=== PATIENT | male | born 1975 | race Two or more races ===

== ENCOUNTER 2023-04-24 00:52 | Emergency (ER) | payer MEDICAID, OTHER ==
[~2023-04-24] VITALS: Ht 175.3 cm; Wt 95.4 kg
[2023-04-24] MEDS ORDERED: MORPHINE SULFATE 4 MG/ML SYR/VIAL IM ONE (01:15)
[2023-04-24 01:18] LABS: Urine Bacteria NONE SEEN /hpf (None Seen); Urine Blood Negative /uL (Negative); Urine Clarity Clear (Clear); Urine Color Yellow (Yellow); Urine Hyaline Cast FEW /lpf (0 - 2); Urine Protein, UAD TRACE (Negative); Urine Specific Gravity 1.024 (1.001-1.035); Urine WBC 1 /hpf (0 - 3)
[2023-04-24 01:55] VITALS: BP 143/79; PULSE 64; RESP 20; TEMP 98.9; O2SAT 97
[2023-04-24] MEDS ORDERED: LIDOCAINE VISCOUS 2% 15ML UD PO ONE (02:00)
[2023-04-24] MEDS ORDERED: MAALOX PLUS or MAALOX 30 ML PO ONE (02:00)
[2023-04-24] MEDS ORDERED: DONNATAL 5ml ORAL Elix (BELLADONNA ALK-PHENOBARB) PO ONE (02:00)
[2023-04-24 02:07] LABS: Basophils # (auto) 0.1 10 ^3/uL (0-0.2); Basophils % (auto) 0.7 % (0.0-2.0); Eosinophils # (auto) 0.1 10 ^3/uL (0-0.8); Eosinophils % (auto) 1.3 % (0.0-7.0); Hematocrit 47.3 % (41.0-53.0); Hemoglobin 16.4 g/dL (13.5-17.5); Lymphocytes # (auto) 1.2 10 ^3/uL (0.4-5.4); Lymphocytes % (auto) 13.6 % (10.0-50.0); Mean Corpuscular Hemoglobin 30.9 pg (28.0-32.0); Mean Corpuscular Hgb Conc. 34.6 g/dL (32.0-36.0); Mean Corpuscular Volume 89.3 fL (80.0-100.0); Monocytes # (auto) 0.5 10 ^3/uL (0-1.3); Neutrophils # (auto) 6.9 10 ^3/uL (1.6-8.6); Neutrophils % (auto) 78.4 % (37.0-80.0); Nucleated Red Blood Cells % 0.1 %; Red Cell Distribution Width 13.9 % (11.8-14.3); White Blood Cell 8.8 10^3/uL (4.4-10.8)
[2023-04-24 02:27] LABS: Alanine Aminotransferase 151 U/L (7-40); Alkaline Phosphatase 89 U/L (46-116); Anion Gap 8 (5-15); Aspartate Aminotransferase 198 U/L (13-40); BUN/Creatinine Ratio 21.6 (10.0-20.0); Blood Urea Nitrogen 24 mg/dL (9-23); Calcium 9.4 mg/dL (8.7-10.4); Carbon Dioxide 24 mmol/L (20-30); Chloride 106 mmol/L (98-107); Glucose 173 mg/dL (74-106); Lipase 61 U/L (12-53); Potassium 3.8 mmol/L (3.5-5.1); Sodium 138 mmol/L (136-145)
[2023-04-24 02:28] LABS: Albumin 4.5 g/dL (3.2-4.8); Bilirubin, Total 1.7 mg/dL (0.2-1.0); Total Protein 7.1 g/dL (5.7-8.2)
[2023-04-24] MEDS ORDERED: DICY10CA PO (03:00)
== END 2023-04-24 03:33 | disposition home or self-care (01) ==
LOC: ER 00:55
DX: K52.9 Noninfective gastroenteritis and colitis, unspecified (principal); Z98.890 Other specified postprocedural states
CPT/HCPCS: 36415; 74176; 80053; 81001; 83690; 85025; 96372; 99285; J2270

== ENCOUNTER 2023-06-02 11:03 | Inpatient (IN) | payer MEDICAID ==
[~2023-06-02] VITALS: Ht 180.3 cm; Wt 95.0 kg
[~2023-06-02 11:03] MED LIST: DICY10CA PO
[2023-06-02] MEDS ORDERED: SODIUM CHLORIDE 0.9% 1,000 ML IVB ONE (11:15)
[2023-06-02] MEDS ORDERED: KETOROLAC TROMETH 30 MG/ML 1ML VIAL IV ONE (11:15)
[2023-06-02] MEDS ORDERED: ONDANSETRON HCL 4 MG/2 ML VIAL IV ONE (11:15)
[2023-06-02 11:41] LABS: Basophils # (auto) 0.1 10 ^3/uL (0-0.2); Basophils % (auto) 0.4 % (0.0-2.0); Eosinophils # (auto) 0 10 ^3/uL (0-0.8); Eosinophils % (auto) 0.2 % (0.0-7.0); Lymphocytes # (auto) 2.1 10 ^3/uL (0.4-5.4); Lymphocytes % (auto) 13.1 % (10.0-50.0); Mean Corpuscular Hemoglobin 30.3 pg (28.0-32.0); Mean Corpuscular Hgb Conc. 33.4 g/dL (32.0-36.0); Mean Corpuscular Volume 90.7 fL (80.0-100.0); Monocytes # (auto) 1.1 10 ^3/uL (0-1.3); Neutrophils # (auto) 12.7 10 ^3/uL (1.6-8.6); Neutrophils % (auto) 79.3 % (37.0-80.0); Nucleated Red Blood Cells % 0.1 %; Red Blood Cells 6.28 10^6/uL (4.5-5.90); Red Cell Distribution Width 13.9 % (11.8-14.3)
[2023-06-02 12:07] LABS: Alanine Aminotransferase 476 U/L (7-40); Albumin 5.1 g/dL (3.2-4.8); Alkaline Phosphatase 110 U/L (46-116); Anion Gap 11 (5-15); Aspartate Aminotransferase 493 U/L (13-40); BUN/Creatinine Ratio 8.4 (10.0-20.0); Bilirubin, Total 2.2 mg/dL (0.2-1.0); Blood Urea Nitrogen 10 mg/dL (9-23); Calcium 10.1 mg/dL (8.5-10.1); Carbon Dioxide 27 mmol/L (20-30); Chloride 101 mmol/L (98-107); Glucose 182 mg/dL (74-106); Potassium 4.1 mmol/L (3.5-5.1); Sodium 139 mmol/L (136-145); Total Protein 8.4 g/dL (5.7-8.2)
[2023-06-02] MEDS ORDERED: PROCHLORPERAZINE EDISYLATE 5 MG/ML 2ML VIAL IV ONE (12:45)
[2023-06-02 12:55] LABS: Magnesium 1.8 mg/dL (1.6-2.6)
[2023-06-02 14:08] LABS: Lipase > 3500 U/L (12-53)
[2023-06-02] MEDS ORDERED: IOHEXOL 300 MG/ML 100ML BOTTLE IJ ONE (14:27)
[2023-06-02] MEDS ORDERED: metroNIDAZOLE 500MG/100ML 100 ML IV ONE (15:45)
[2023-06-02] MEDS ORDERED: SODIUM CHLORIDE 0.9% 2,000 ML IV ONE (15:45)
[2023-06-02] MEDS ORDERED: cefTRIAXone 1GM/50ML D5W 50 ML IV ONE (15:45)
[2023-06-02] MEDS ORDERED: PANT40T PO (15:53)
[2023-06-02] MEDS ORDERED: FAMO20TA10 PO (15:53)
[2023-06-02] MEDS ORDERED: PANTOPRAZOLE 40 MG/10 ML VIAL INJ IV ONE (16:00)
[2023-06-02] MEDS ORDERED: ACETAMINOPHEN 325 MG TAB PO PRN (16:00)
[2023-06-02] MEDS: SODIUM CHLORIDE 0.9% 1,000 ML IV SCH (16:24)
[2023-06-02] MEDS: MORPHINE SULFATE INJ 2 MG/ml SYRG IV PRN ×2 (18:24→22:57)
[2023-06-02] MEDS: metroNIDAZOLE 500MG/100ML 100 ML IV SCH (21:58)
[2023-06-02] MEDS: KETOROLAC TROMETH 30 MG/ML 1ML VIAL IV PRN (21:59)
[2023-06-02 22:29] VITALS: BP 148/95; PULSE 82; RESP 22; TEMP 97.9; O2SAT 97; O2SAT 99
[2023-06-02] MEDS: ONDANSETRON HCL 4 MG/2 ML VIAL IV PRN (22:57)
[2023-06-02 23:54] LABS: Urine Bacteria NONE SEEN /hpf (None Seen); Urine Blood Negative /uL (Negative); Urine Clarity Clear (Clear); Urine Color Yellow (Yellow); Urine Mucus FEW (None Seen); Urine Protein, UAD 1+ (Negative); Urine Specific Gravity 1.046 (1.001-1.035); Urine Urobilinogen Normal (Negative); Urine WBC 2 /hpf (0 - 3); Urine pH 5.5 (5.0-8.0)
[2023-06-03 00:02] LABS: Amphetamine Screen, Urine Neg (NEGATIVE); Barbiturate Scree,Urine Neg (NEGATIVE); Benzodiazephine Screen, Urine Neg (NEGATIVE)
[2023-06-03 00:03] LABS: Cannabinoid Screen, Urine Neg (NEGATIVE); Cocaine Screen, Urine Neg (NEGATIVE); Opiate Scree,Urine Pos (NEGATIVE); Phencyclidine Screen, Urine Neg (NEGATIVE)
[2023-06-03] MEDS: SODIUM CHLORIDE 0.9% 1,000 ML IV SCH ×4 (00:20→21:02)
[2023-06-03] MEDS: ONDANSETRON HCL 4 MG/2 ML VIAL IV PRN ×2 (01:58→06:07)
[2023-06-03] MEDS: MORPHINE SULFATE INJ 2 MG/ml SYRG IV PRN ×4 (01:59→21:18)
[2023-06-03] MEDS: KETOROLAC TROMETH 30 MG/ML 1ML VIAL IV PRN (04:28)
[2023-06-03 05:00] VITALS: BP 137/94; PULSE 87; RESP 22; TEMP 98; O2SAT 93
[2023-06-03] MEDS: metroNIDAZOLE 500MG/100ML 100 ML IV SCH ×3 (06:07→21:02)
[2023-06-03 07:32] LABS: Basophils # (auto) 0 10 ^3/uL (0-0.2); Basophils % (auto) 0.1 % (0.0-2.0); Eosinophils # (auto) 0 10 ^3/uL (0-0.8); Hematocrit 53.4 % (41.0-53.0); Lymphocytes # (auto) 0.7 10 ^3/uL (0.4-5.4); Lymphocytes % (auto) 3.1 % (10.0-50.0); Monocytes # (auto) 1.3 10 ^3/uL (0-1.3); Nucleated Red Blood Cells % 0.1 %; Red Cell Distribution Width 13.7 % (11.8-14.3)
[2023-06-03 07:37] LABS: Eosinophils % (auto) 0.1 % (0.0-7.0); Hemoglobin 17.8 g/dL (13.5-17.5); Mean Corpuscular Hemoglobin 30.3 pg (28.0-32.0); Mean Corpuscular Hgb Conc. 33.3 g/dL (32.0-36.0); Neutrophils # (auto) 19.4 10 ^3/uL (1.6-8.6); Neutrophils % (auto) 90.7 % (37.0-80.0); Red Blood Cells 5.87 10^6/uL (4.5-5.90); White Blood Cell 21.4 10^3/uL (4.4-10.8)
[2023-06-03 07:54] LABS: Alanine Aminotransferase 321 U/L (7-40); Albumin 4.3 g/dL (3.2-4.8); Alkaline Phosphatase 102 U/L (46-116); Anion Gap 10 (5-15); Aspartate Aminotransferase 157 U/L (13-40); BUN/Creatinine Ratio 9.9 (10.0-20.0); Bilirubin, Total 3.9 mg/dL (0.2-1.0); Blood Urea Nitrogen 10 mg/dL (9-23); Calcium 8.7 mg/dL (8.5-10.1); Carbon Dioxide 25 mmol/L (20-30); Chloride 103 mmol/L (98-107); Glucose 154 mg/dL (74-106); Potassium 3.8 mmol/L (3.5-5.1); Sodium 138 mmol/L (136-145); Total Protein 6.9 g/dL (5.7-8.2)
[2023-06-03] MEDS: cefTRIAXone 1GM/50ML D5W 50 ML IV SCH (08:37)
[2023-06-03] MEDS: PANTOPRAZOLE 40 MG/10 ML VIAL INJ IV SCH (08:39)
[2023-06-03] MEDS: ENOXAPARIN SOD 40 MG/0.4 ML SYRINGE SC SCH (08:40)
[2023-06-03 08:59] VITALS: BP 139/95; PULSE 85; RESP 20; TEMP 98.6; O2SAT 95
[2023-06-03 09:09] LABS: Platelet Estimate Adequate
[2023-06-03 09:11] LABS: RBC Morphology Normal
[2023-06-03] MEDS ORDERED: chlordiazePOXIDE HCL 25 MG CAP PO SCH (11:00)
[2023-06-03 11:36] LABS: Lipase 1180 U/L (12-53)
[2023-06-03 13:01] VITALS: BP 141/89; PULSE 82; RESP 20; TEMP 98.6; O2SAT 97
[2023-06-03] MEDS: FOLIC ACID 1 MG, MULTIPLE VITAMIN 10 ML, MAGNESIUM SULF SDV 50% 8 MEQ, THIAMINE INJ 100... INJ SCH ×5 (13:17)
[2023-06-03 17:35] VITALS: BP 133/89; PULSE 89; RESP 20; TEMP 100.5; O2SAT 95
[2023-06-03 19:15] LABS: Lactic Acid w/Reflex 2.3 mmol/L (0.4-2.0)
[2023-06-03 20:10] VITALS: BP 137/92; PULSE 91; RESP 18; TEMP 99; O2SAT 93
[2023-06-03] MEDS: chlordiazePOXIDE HCL 25 MG CAP PO SCH (21:02)
[2023-06-03 22:00] VITALS: BP 137/92; PULSE 91; RESP 18; TEMP 99; O2SAT 93
[2023-06-04] VITALS (8 sets, daily range): BP systolic 131–143; BP diastolic 83–93; PULSE 86–107; RESP 16–20; TEMP 98.3–99.5; O2SAT 91–98
[2023-06-04] MEDS: MORPHINE SULFATE INJ 2 MG/ml SYRG IV PRN ×3 (04:35→22:58)
[2023-06-04] MEDS: metroNIDAZOLE 500MG/100ML 100 ML IV SCH ×3 (04:38→21:29)
[2023-06-04] MEDS: chlordiazePOXIDE HCL 25 MG CAP PO SCH ×3 (04:38→21:29)
[2023-06-04] MEDS: SODIUM CHLORIDE 0.9% 1,000 ML IV SCH ×2 (06:42→17:56)
[2023-06-04] MEDS: ONDANSETRON HCL 4 MG/2 ML VIAL IV PRN (09:21)
[2023-06-04 09:23] LABS: Hepatitis B Surface Antigen Negative (Negative)
[2023-06-04] MEDS: cefTRIAXone 1GM/50ML D5W 50 ML IV SCH (09:24)
[2023-06-04] MEDS: ENOXAPARIN SOD 40 MG/0.4 ML SYRINGE SC SCH (09:24)
[2023-06-04 09:28] LABS: Hepatitis B Surface Antigen Negative (Negative)
[2023-06-04] MEDS: PANTOPRAZOLE 40 MG/10 ML VIAL INJ IV SCH (09:28)
[2023-06-04 09:46] LABS: Hepatitis C Antibody Negative (Negative)
[2023-06-04 09:49] LABS: Hepatitis A Ab IgM Negative; Hepatitis B Core IgM Negative
[2023-06-04 09:50] LABS: Hepatitis C Antibody Negative (Negative)
[2023-06-04] MEDS ORDERED: VANCOMYCIN PER PHARMACY 0 MG IV SCH (13:15)
[2023-06-04] MEDS ORDERED: VANCOMYCIN 1GM/250ML 250 ML IV ONE (13:15)
[2023-06-04] MEDS: FOLIC ACID 1 MG, MULTIPLE VITAMIN 10 ML, MAGNESIUM SULF SDV 50% 8 MEQ, THIAMINE INJ 100... INJ SCH ×5 (15:16)
[2023-06-04] MEDS: KETOROLAC TROMETH 30 MG/ML 1ML VIAL IV PRN (17:52)
[2023-06-04] MEDS: VANCOMYCIN 1GM/250ML 250 ML IV SCH (23:44)
[2023-06-05] MEDS: SODIUM CHLORIDE 0.9% 1,000 ML IV SCH ×3 (02:20→19:00)
[2023-06-05] MEDS: KETOROLAC TROMETH 30 MG/ML 1ML VIAL IV PRN ×3 (03:02→16:32)
[2023-06-05 05:00] VITALS: BP 139/84; PULSE 94; RESP 18; TEMP 98.7; O2SAT 93
[2023-06-05] MEDS: metroNIDAZOLE 500MG/100ML 100 ML IV SCH ×3 (05:07→21:59)
[2023-06-05] MEDS: MORPHINE SULFATE INJ 2 MG/ml SYRG IV PRN ×3 (06:38→20:50)
[2023-06-05 08:00] VITALS: PULSE 98; RESP 18; O2SAT 93
[2023-06-05] MEDS: VANCOMYCIN 1GM/250ML 250 ML IV SCH ×2 (08:35→16:41)
[2023-06-05 08:40] LABS: Basophils # (auto) 0 10 ^3/uL (0-0.2); Basophils % (auto) 0.1 % (0.0-2.0); Eosinophils # (auto) 0.1 10 ^3/uL (0-0.8); Eosinophils % (auto) 0.4 % (0.0-7.0); Hematocrit 45.2 % (41.0-53.0); Hemoglobin 15.4 g/dL (13.5-17.5); Lymphocytes # (auto) 0.7 10 ^3/uL (0.4-5.4); Lymphocytes % (auto) 3.6 % (10.0-50.0); Mean Corpuscular Hemoglobin 30.7 pg (28.0-32.0); Mean Corpuscular Volume 90.3 fL (80.0-100.0); Monocytes # (auto) 1.5 10 ^3/uL (0-1.3); Monocytes % (auto) 7.8 % (0.0-12.0); Neutrophils # (auto) 16.4 10 ^3/uL (1.6-8.6); Neutrophils % (auto) 88.1 % (37.0-80.0); Red Cell Distribution Width 13.5 % (11.8-14.3); White Blood Cell 18.6 10^3/uL (4.4-10.8)
[2023-06-05 09:00] VITALS: BP 139/93; PULSE 98; RESP 18; TEMP 98; O2SAT 91
[2023-06-05] MEDS: PANTOPRAZOLE 40 MG/10 ML VIAL INJ IV SCH (09:59)
[2023-06-05] MEDS: chlordiazePOXIDE HCL 25 MG CAP PO SCH ×2 (09:59→22:00)
[2023-06-05] MEDS: ENOXAPARIN SOD 40 MG/0.4 ML SYRINGE SC SCH (09:59)
[2023-06-05] MEDS: levoFLOXacin 500MG 100 ML IV SCH (10:04)
[2023-06-05] MEDS: FOLIC ACID 1 MG, MULTIPLE VITAMIN 10 ML, MAGNESIUM SULF SDV 50% 8 MEQ, THIAMINE INJ 100... INJ SCH ×10 (12:00→13:30)
[2023-06-05 13:00] VITALS: BP 124/81; PULSE 102; RESP 19; TEMP 97.5; O2SAT 91
[2023-06-05 17:00] VITALS: BP 132/91; PULSE 99; RESP 18; TEMP 97.5; O2SAT 93
[2023-06-05 22:00] VITALS: BP 127/86; PULSE 98; RESP 18; TEMP 98.5; O2SAT 92
[2023-06-06] MEDS: VANCOMYCIN 1GM/250ML 250 ML IV SCH (00:13)
[2023-06-06] MEDS: MORPHINE SULFATE INJ 2 MG/ml SYRG IV PRN (01:41)
[2023-06-06] MEDS: SODIUM CHLORIDE 0.9% 1,000 ML IV SCH ×3 (03:22→20:02)
[2023-06-06 05:00] VITALS: BP 142/92; PULSE 94; RESP 19; TEMP 98.4; O2SAT 96
[2023-06-06] MEDS: metroNIDAZOLE 500MG/100ML 100 ML IV SCH ×3 (05:19→21:20)
[2023-06-06 05:59] LABS: Basophils # (auto) 0.1 10 ^3/uL (0-0.2); Basophils % (auto) 0.4 % (0.0-2.0); Eosinophils # (auto) 0.2 10 ^3/uL (0-0.8); Hematocrit 40.3 % (41.0-53.0); Hemoglobin 13.9 g/dL (13.5-17.5); Lymphocytes # (auto) 0.7 10 ^3/uL (0.4-5.4); Lymphocytes % (auto) 4.2 % (10.0-50.0); Mean Corpuscular Hgb Conc. 34.6 g/dL (32.0-36.0); Mean Corpuscular Volume 89.5 fL (80.0-100.0); Monocytes # (auto) 1.7 10 ^3/uL (0-1.3); Monocytes % (auto) 9.8 % (0.0-12.0); Neutrophils # (auto) 14.9 10 ^3/uL (1.6-8.6); Neutrophils % (auto) 84.6 % (37.0-80.0); Red Cell Distribution Width 13.7 % (11.8-14.3); White Blood Cell 17.6 10^3/uL (4.4-10.8)
[2023-06-06 06:14] LABS: Alanine Aminotransferase 66 U/L (7-40); Albumin 3.4 g/dL (3.2-4.8); Alkaline Phosphatase 86 U/L (46-116); Anion Gap 7 (5-15); Aspartate Aminotransferase 24 U/L (13-40); BUN/Creatinine Ratio 8.2 (10.0-20.0); Bilirubin, Total 1.2 mg/dL (0.2-1.0); Blood Urea Nitrogen 6 mg/dL (9-23); Calcium 7.6 mg/dL (8.7-10.4); Carbon Dioxide 25 mmol/L (20-30); Chloride 104 mmol/L (98-107); Glucose 124 mg/dL (74-106); Lipase 55 U/L (12-53); Potassium 3.2 mmol/L (3.5-5.1); Sodium 136 mmol/L (136-145); Total Protein 5.6 g/dL (5.7-8.2)
[2023-06-06] MEDS ORDERED: chlordiazePOXIDE HCL 25 MG CAP PO SCH (07:00)
[2023-06-06 08:00] VITALS: PULSE 94; RESP 19; O2SAT 93
[2023-06-06 09:10] VITALS: BP 126/84; PULSE 95; RESP 18; TEMP 97.8; O2SAT 90
[2023-06-06] MEDS: ENOXAPARIN SOD 40 MG/0.4 ML SYRINGE SC SCH (09:49)
[2023-06-06] MEDS: PANTOPRAZOLE 40 MG/10 ML VIAL INJ IV SCH (09:49)
[2023-06-06] MEDS: levoFLOXacin 500MG 100 ML IV SCH (09:52)
[2023-06-06] MEDS ORDERED: LACTULOSE 20Gm/30ML SOLN PO ONE ×2 (11:45→14:15)
[2023-06-06 13:00] VITALS: BP_SYST 117; BP_SYST 151; BP_DIAS 78; BP_DIAS 89; PULSE 103; PULSE 75; RESP 18; RESP 19; TEMP 97.8; TEMP 98; O2SAT 96; O2SAT 98
[2023-06-06 16:52] VITALS: BP 119/69; PULSE 108; RESP 19; TEMP 98.8; O2SAT 96
[2023-06-06 22:00] VITALS: BP 141/85; PULSE 99; RESP 18; TEMP 98.3; O2SAT 94
[2023-06-07] VITALS (7 sets, daily range): BP systolic 115–130; BP diastolic 61–80; PULSE 70–93; RESP 18–22; TEMP 97.1–98.4; O2SAT 93–100
[2023-06-07] MEDS: SODIUM CHLORIDE 0.9% 1,000 ML IV SCH ×3 (04:20→21:00)
[2023-06-07] MEDS: metroNIDAZOLE 500MG/100ML 100 ML IV SCH ×3 (05:22→21:40)
[2023-06-07 06:14] LABS: Anion Gap 7 (5-15); Carbon Dioxide 23 mmol/L (20-30); Chloride 107 mmol/L (98-107); Potassium 3.2 mmol/L (3.5-5.1); Sodium 137 mmol/L (136-145)
[2023-06-07 06:15] LABS: Calcium 7.5 mg/dL (8.7-10.4)
[2023-06-07 06:20] LABS: Glucose 114 mg/dL (74-106)
[2023-06-07 06:30] LABS: BUN/Creatinine Ratio 6.4 (10.0-20.0); Blood Urea Nitrogen < 5 mg/dL (9-23)
[2023-06-07] MEDS: ENOXAPARIN SOD 40 MG/0.4 ML SYRINGE SC SCH (10:00)
[2023-06-07 11:03] LABS: Basophils # (auto) 0 10 ^3/uL (0-0.2); Basophils % (auto) 0.1 % (0.0-2.0); Eosinophils # (auto) 0.2 10 ^3/uL (0-0.8); Eosinophils % (auto) 1.5 % (0.0-7.0); Hematocrit 39.2 % (41.0-53.0); Hemoglobin 13.3 g/dL (13.5-17.5); Lymphocytes % (auto) 5.9 % (10.0-50.0); Mean Corpuscular Hemoglobin 30.5 pg (28.0-32.0); Mean Corpuscular Volume 89.4 fL (80.0-100.0); Monocytes # (auto) 1.5 10 ^3/uL (0-1.3); Monocytes % (auto) 9.2 % (0.0-12.0); Neutrophils # (auto) 13.9 10 ^3/uL (1.6-8.6); Neutrophils % (auto) 83.3 % (37.0-80.0); Red Blood Cells 4.38 10^6/uL (4.5-5.90); Red Cell Distribution Width 13.5 % (11.8-14.3); White Blood Cell 16.7 10^3/uL (4.4-10.8)
[2023-06-07] MEDS: levoFLOXacin 500MG 100 ML IV SCH (11:32)
[2023-06-07] MEDS: PANTOPRAZOLE 40 MG/10 ML VIAL INJ IV SCH (11:33)
[2023-06-07] MEDS: FOLIC ACID 1 MG, MULTIPLE VITAMIN 10 ML, MAGNESIUM SULF SDV 50% 8 MEQ, THIAMINE INJ 100... INJ SCH ×5 (12:00)
[2023-06-07] MEDS ORDERED: POTASSIUM EFFERVESENT TAB 25 MEQ GT ONE (16:30)
[2023-06-07] MEDS: ONDANSETRON HCL 4 MG/2 ML VIAL IV PRN (20:48)
[2023-06-08 05:00] VITALS: BP 143/79; PULSE 90; RESP 19; TEMP 98.2; O2SAT 93
[2023-06-08] MEDS: SODIUM CHLORIDE 0.9% 1,000 ML IV SCH (05:20)
[2023-06-08] MEDS: metroNIDAZOLE 500MG/100ML 100 ML IV SCH (05:29)
[2023-06-08 07:19] LABS: Basophils # (auto) 0 10 ^3/uL (0-0.2); Basophils % (auto) 0.3 % (0.0-2.0); Eosinophils # (auto) 0.3 10 ^3/uL (0-0.8); Eosinophils % (auto) 2.1 % (0.0-7.0); Hematocrit 39.3 % (41.0-53.0); Hemoglobin 13.2 g/dL (13.5-17.5); Lymphocytes # (auto) 0.9 10 ^3/uL (0.4-5.4); Lymphocytes % (auto) 6.1 % (10.0-50.0); Mean Corpuscular Hemoglobin 30.2 pg (28.0-32.0); Mean Corpuscular Hgb Conc. 33.5 g/dL (32.0-36.0); Mean Corpuscular Volume 90.1 fL (80.0-100.0); Monocytes # (auto) 1.5 10 ^3/uL (0-1.3); Monocytes % (auto) 10.2 % (0.0-12.0); Neutrophils # (auto) 11.7 10 ^3/uL (1.6-8.6); Neutrophils % (auto) 81.3 % (37.0-80.0); Red Blood Cells 4.36 10^6/uL (4.5-5.90); Red Cell Distribution Width 13.9 % (11.8-14.3); White Blood Cell 14.4 10^3/uL (4.4-10.8)
[2023-06-08 07:30] LABS: Anion Gap 5 (5-15); Calcium 7.8 mg/dL (8.7-10.4); Carbon Dioxide 29 mmol/L (20-30); Chloride 104 mmol/L (98-107); Sodium 138 mmol/L (136-145)
[2023-06-08 07:36] LABS: BUN/Creatinine Ratio 5.6 (10.0-20.0); Blood Urea Nitrogen 5 mg/dL (9-23); Glucose 141 mg/dL (74-106)
[2023-06-08 07:41] LABS: Potassium 2.9 mmol/L (3.5-5.1)
[2023-06-08 08:00] VITALS: PULSE 89; RESP 16; O2SAT 95
[2023-06-08] MEDS ORDERED: POTASSIUM CHL 20 Meq TABLET PO ONE (08:45)
[2023-06-08 09:00] VITALS: BP 139/89; PULSE 85; RESP 16; TEMP 98.3; O2SAT 95
[2023-06-08] MEDS: PANTOPRAZOLE 40 MG/10 ML VIAL INJ IV SCH (10:10)
[2023-06-08] MEDS: levoFLOXacin 500MG 100 ML IV SCH (10:10)
[2023-06-08] MEDS: ENOXAPARIN SOD 40 MG/0.4 ML SYRINGE SC SCH (10:11)
[2023-06-08] MEDS ORDERED: FOLI-119 PO (10:33)
[2023-06-08] MEDS ORDERED: LEVO500T91 PO (10:33)
[2023-06-08] MEDS ORDERED: PANT40T PO (10:33)
[2023-06-08] MEDS ORDERED: METR-344 PO (10:33)
[2023-06-08] MEDS ORDERED: THIA100T13 PO (10:33)
[2023-06-08 11:29] VITALS: TEMP 36.8
== END 2023-06-08 13:09 | disposition home or self-care (01) | DRG 720 ==
LOC: EDBD 11:03 → ER 11:03 → WEST WING 15:52 → OVERFLOW 15:52 → WEST WING 21:26
PROVIDERS: ADMIT Nurse Practitioner Family; ATTEND Family Medicine
DX: A41.9 Sepsis, unspecified organism (principal); K85.90 Acute pancreatitis without necrosis or infection, unspecified; K29.80 Duodenitis without bleeding; E86.0 Dehydration; F10.10 Alcohol abuse, uncomplicated; Z71.41 Alcohol abuse counseling and surveillance of alcoholic; K59.00 Constipation, unspecified; Z87.11 Personal history of peptic ulcer disease; K21.9 Gastro-esophageal reflux disease without esophagitis; R19.7 Diarrhea, unspecified; R73.9 Hyperglycemia, unspecified; R74.01 Elevation of levels of liver transaminase levels
CPT/HCPCS: 36415; 74177; 74181; 76705; 78226; 80048; 80053; 80074; 80202; 80307; 80320; 81001; 82248; 82565; 83036; 83605; 83690; 83735; 85025; 85048; 86803; 87040; 87045; 87081; 87340; 87427; 96365; 96375; C9113; G0378; J0696; J1885; J1956; J2405; J3490